=== PATIENT | male | born 1995 | race Caucasian/White ===

== ENCOUNTER 2020-03-21 19:35 | Emergency (ER) | payer SELFPAY ==
[~2020-03-21] VITALS: Ht 195.6 cm; Wt 80.3 kg
[2020-03-21 20:01] VITALS: BP_SYST 143
[2020-03-21 22:01] VITALS: BP_SYST 143
== END 2020-03-21 22:01 | disposition home or self-care (01) ==
LOC: SED 19:35
DX: J03.90 Acute tonsillitis, unspecified (principal)
CPT/HCPCS: 70490; 76376; 99284